=== PATIENT | male | born 1970 | race Caucasian/White ===

== ENCOUNTER 2017-09-17 14:56 | Emergency (ER) | payer BC ==
[2017-09-17] MEDS ORDERED: Albuterol/Ipratropium 3.0-0.5 MG/3 ML Neb Soln NEB STA (15:19)
--- NOTE | 2017-09-17 16:28 | EDM.PDOC ---
ED HPI GENERAL MEDICAL PROBLEM - General Chief Complaint: Respiratory Problem Stated Complaint: COUGH Time Seen by Provider: 09/17/17 16:28 Source of Information: Reports: Patient - History of Present Illness INITIAL COMMENTS - FREE TEXT/NARRATIVE: HISTORY AND PHYSICAL: History of present illness: [Patient presents with persistent cough and resting sputum production, he has been treated with Augmentin Solu-Medrol and HFA [facility] No previous x-ray per patient is at symptoms for 2 weeks and completed the Augmentin No current fever chills sweats no chest pain shortness breath headache dizziness or palpitation no bowel or urine symptoms No apparent distress ] Review of systems: As per history of present illness and below otherwise all systems reviewed and negative. Past medical history: As per history of present illness and as reviewed below otherwise noncontributory. Surgical history: As per history of present illness and as reviewed below otherwise noncontributory. Social history: No reported history of drug or alcohol abuse. Family history: As per history of present illness and as reviewed below otherwise noncontributory. Physical exam: HEENT: Atraumatic, normocephalic, pupils reactive, negative for conjunctival pallor or scleral icterus, mucous membranes moist, throat clear, neck supple, nontender, trachea midline. Lungs: Clear to auscultation, breath sounds equal bilaterally, chest nontender. Heart: S1S2, regular, negative for clicks, rubs, or JVD. Abdomen: Soft, nondistended, nontender. Negative for masses or hepatosplenomegaly. Negative for costovertebral tenderness. Pelvis: Stable nontender. Genitourinary: Deferred. Rectal: Deferred. Extremities: Atraumatic, negative for cords or calf pain. Neurovascular unremarkable. Neuro: Awake, alert, oriented. Cranial nerves II through XII unremarkable. Cerebellum unremarkable. Motor and sensory unremarkable throughout. Exam nonfocal. Diagnostics: [Chest x-ray 2 views ] Therapeutics: [Continue HFA Medrol Dosepak Levaquin ] Impression: [ pneumonia ] Definitive disposition and diagnosis as appropriate pending reevaluation and review of above. Middle Chest Pain Score (Numeric/FACES): 4 - Related Data Allergies Allergy/AdvReac Type Severity Reaction Status Date / Time Sulfa (Sulfonamide Allergy Hives Verified 09/17/17 15:20 Antibiotics) Home Meds: Home Meds Allopurinol [Zyloprim] 100 mg PO DAILY 09/17/17 [History] Lisinopril 10 mg PO DAILY 09/17/17 [History] Past Medical History Cardiovascular History: Reports: Hypertension Respiratory History: Reports: Pneumonia, Recurrent Other Respiratory History: as child Genitourinary History: Reports: UTI, Recurrent Musculoskeletal History: Reports: Gout Other Musculoskeletal History: L ankle fx - Infectious Disease History Infectious Disease History: Reports: Chicken Pox - Past Surgical History GI Surgical History: Reports: Hernia, Abdominal, Hernia, Inguinal Other Musculoskeletal Surgeries/Procedures:: L AC joint Social & Family History - Family History Family Medical History: Noncontributory - Tobacco Use Smoking Status *Q: Current Every Day Smoker Years of Tobacco use: 10 Packs/Tins Daily: 1 - Caffeine Use Caffeine Use: Reports: Soda - Recreational Drug Use Recreational Drug Use: No ED ROS GENERAL - Review of Systems Review Of Systems: See Below ED EXAM, GENERAL - Physical Exam Exam: See Below Course - Vital Signs Last Recorded V/S: Last Vital Signs Temp 96.8 F 09/17/17 15:09 Pulse 93 09/17/17 15:09 Resp 18 09/17/17 15:09 BP 130/85 09/17/17 15:09 Pulse Ox 96 09/17/17 15:09 - Orders/Labs/Meds Orders: Active Orders 24 hr Category Date Time Status RT Aerosol Therapy [RC] ASDIRECTED Care 09/17/17 15:19 Active Chest 2V [CR] Stat Exams 09/17/17 15:19 Taken Meds: Medications Discontinued Medications Generic Name Dose Route Start Last Admin Trade Name Mary PRN Reason Stop Dose Admin Albuterol/Ipratropium 3 ml 09/17/17 15:19 09/17/17 15:55 Duoneb 3.0-0.5 Mg/3 Ml NEB 09/17/17 15:20 3 ml NOW STA Administration Departure - Departure Time of Disposition: 16:37 Disposition: Home, Self-Care 01 Condition: Good Clinical Impression: Pneumonia - Discharge Information Referrals: PCP,None [Primary Care Provider] - Forms: ED Department Discharge Additional Instructions: Continue inhaler 2 puffs 4 times daily 7-10 days use spacer as provided Otherwise medications as prescribed Smoking cessation recommended Follow-up with primary care in 2 weeks sooner as needed Ioana Orellana [facility] - [facility] [address] [place] [id number] The following information is given to patients seen in the emergency department who are being discharged to home. This information is to outline your options for follow-up care. We provide all patients seen in our emergency department with a follow-up referral. The need for follow-up, as well as the timing and circumstances, are variable depending upon the specifics of your emergency department visit. If you don't have a primary care physician on staff, we will provide you with a referral. We always advise you to contact your personal physician following an emergency department visit to inform them of the circumstance of the visit and for follow-up with them and/or the need for any referrals to a consulting specialist. The emergency department will also refer you to a specialist when appropriate. This referral assures that you have the opportunity for follow-up care with a specialist. All of these measure are taken in an effort to provide you with optimal care, which includes your follow-up. Under all circumstances we always encourage you to contact your private physician who remains a resource for coordinating your care. When calling for follow-up care, please make the office aware that this follow-up is from your recent emergency room visit. If for any reason you are refused follow-up, please contact the [facility] emergency department at and asked to speak to the emergency department charge nurse. - My Orders Last 24 Hours: My Active Orders 09/17/17 15:19 RT Aerosol Therapy [RC] ASDIRECTED Chest 2V [CR] Stat - Assessment/Plan Last 24 Hours: My Active Orders 09/17/17 15:19 RT Aerosol Therapy [RC] ASDIRECTED Chest 2V [CR] Stat
--- NOTE | 2017-09-18 14:08 | CR ---
EXAM DATE: 09/17/17 PATIENT'S AGE: 47 Patient: [place] Facility: [place], [place] Site . Site : [id number] Study: XRay Chest [id number] 3:53:53 PM Ordering Physician: Adalberto Landers Final Report: INDICATION: Cough. TECHNIQUE: Chest 2 views. COMPARISON: None FINDINGS: Cardiovascular and mediastinum: Heart size is normal. Pulmonary vasculature is normal. Mediastinum is within normal limits. Lungs and pleural spaces: On the frontal radiograph there is a small area of abnormal opacity in the left lung base lateral to the heart border. No definite correlate on the lateral view. The right lung is clear. No pleural effusion. No pneumothorax. Bones and soft tissues: No acute findings. IMPRESSION: Subtle opacity in the left lung base on the frontal view. Findings may represent atelectasis. An early or developing pneumonia could also have this appearance. Dictated by Torey Rendon MD @ 09/17/2017 3:59:05 PM Dictated by: Torey Rendon MD @ 09/17/2017 15:59:10 (Electronic Signature) Report Signed by Proxy. RAD
== END 2017-09-17 16:51 | disposition home or self-care (01) ==
LOC: MW.ED 14:56
DX: J18.9 Pneumonia, unspecified organism (principal); I10 Essential (primary) hypertension; F17.210 Nicotine dependence, cigarettes, uncomplicated; Z88.2 Allergy status to sulfonamides; Z79.899 Other long term (current) drug therapy
CPT/HCPCS: 71046; 71046-26; 94640; 99283-25